=== PATIENT | male | born 1965 | race African-American/Black ===

== ENCOUNTER 2017-03-15 22:18 | Emergency (ER) | payer OTHER ==
--- NOTE | ~2017-03-15 | CR21 ---
[facility] A Service of [facility] & [facility] RADIOLOGY TEXT RESULTS PATIENT: BORIS CONNOR LOCATION: [facility] : 65 UNIT #: [id number] AGE: [address]: Jeannette Guerra MD SEX: M ORDER DR: [id number] [facility] [address] [place], [place] [address] [id number] MR#: [id number] Acc #: [id number] NAME: BORIS CONNOR : 1965 SEX: M STUDY DATE/TIME: 03/15/2017 23:04 UNIT: [facility] ROOM: STUDY DESCRIPTION: CR Ankle Min 3 Views Rt Attending Physician: Jeannette Guerra M.D. Ordering Physician: Jeannette Guerra M.D. Primary Care Physician: Primary Care Physician No MEDICAL IMAGING REPORT This report is preliminary unless electronic signature is present EXAM Right ankle series, 03/15/2017 HISTORY 51-year-old male in the ED complaining of medial right ankle pain, mostly with weightbearing. Symptoms began yesterday. No reported acute injury. TECHNIQUE Three-view right ankle series. FINDINGS The examination is negative. No fracture, dislocation, arthropathy or other osseous abnormality is demonstrated. Incidentally noted small plantar and Achilles calcaneal bone spurs. IMPRESSION Negative right ankle series. Dictated by... Justin Rousseau M.D. THIS IS AN ELECTRONICALLY VERIFIED REPORT Justin Rousseau M.D. at 03/16/2017 6:05 AM ROSEANNA/cristy TD: 03/15/2017 23:43 JOB #: [id number] MEDICAL IMAGING REPORT Page 1 of 1 COPY
[~2017-03-15 22:18] MED LIST: FAMOTIDINE PO; NAPROSYN500 MG PO; OMEPRAZOLE20 M2 PO; PREVPAC PA1 COMB.PKG PO; TRAMADOL HCL50 M1 PO
== END 2017-03-16 00:03 | disposition home or self-care (01) ==
LOC: CED 22:18
DX: S93.401A Sprain of unspecified ligament of right ankle, initial encounter (principal); F17.200 Nicotine dependence, unspecified, uncomplicated; Z88.8 Allergy status to other drugs, medicaments and biological substances; Z79.899 Other long term (current) drug therapy; X58.XXXA Exposure to other specified factors, initial encounter; Y92.098 Other place in other non-institutional residence as the place of occurrence of the external cause
CPT/HCPCS: 29540; 73610; 99283

== ENCOUNTER 2017-04-26 16:55 | Emergency (ER) | payer OTHER ==
--- NOTE | ~2017-04-26 | CR115 ---
[facility] A Service of [facility] & [facility] RADIOLOGY TEXT RESULTS PATIENT: BORIS CONNOR LOCATION: [facility] : 65 UNIT #: [id number] AGE: [address]: JO ANN MANCILLA SEX: M ORDER DR: [id number] [facility] [address] [place], [place] [address] [id number] E MR#: [id number] Acc #: [id number] NAME: BORIS CONNOR : 1965 SEX: M STUDY DATE/TIME: 04/26/2017 17:37 UNIT: [facility] ROOM: STUDY DESCRIPTION: CR Finger 2 View 5Th Rt Attending Physician: Jo Ann Mancilla Aprn Ordering Physician: Jo Ann Mancilla Aprn Primary Care Physician: Primary Care Physician No MEDICAL IMAGING REPORT This report is preliminary unless electronic signature is present EXAM Right fifth digit 3 views HISTORY Pain and swelling after dog bite today. FINDINGS 3 views of the right fifth digit demonstrate no fracture or opaque soft tissue foreign body. Mild soft tissue swelling along the volar margin of the finger tip. Bone alignment is normal. Dictated by... Feliciano Tripp M.D. THIS IS AN ELECTRONICALLY VERIFIED REPORT Feliciano Tripp M.D. at 04/27/2017 11:03 PM DFL/freya TD: 04/27/2017 04:31 JOB #: [id number] MEDICAL IMAGING REPORT Page 1 of 1 COPY
== END 2017-04-26 19:25 | disposition home or self-care (01) ==
LOC: CED 16:55 → CFTX 16:55
DX: S61.256A Open bite of right little finger without damage to nail, initial encounter (principal); E11.9 Type 2 diabetes mellitus without complications; F17.210 Nicotine dependence, cigarettes, uncomplicated; Z23 Encounter for immunization; W54.0XXA Bitten by dog, initial encounter; Y92.009 Unspecified place in unspecified non-institutional (private) residence as the place of occurrence of the external cause
CPT/HCPCS: 12001; 73140; 90471; 90715; 99283